=== PATIENT | female | born 1975 | race Caucasian/White ===

== ENCOUNTER 2017-06-29 03:46 | Emergency (ER) | payer MEDICARE, MEDICAID ==
[~2017-06-29] VITALS: Ht 165.1 cm; Wt 112.0 kg
[~2017-06-29 03:46] MED LIST: ACCU20TA PO; BACL20TA PO; DICL50 PO; DIGO0.25 PO; FENT50DI T-DERMAL; FURO1TAB93 PO; GABA300 PO; HYDR-3535 PO; IBUP-232 PO; KLOR20TA6 PO; LORA1TAB PO; MONT10TA2 PO; OMEP20TA OR; SERO100T PO; SUCR1TAB PO; SYNT200T PO; TOPR100T15 PO; WELL150T PO; ZOFR4TAB3 SL; ZOLP10TA3 PO; [UNRECOGNIZED DRUG - CODE] TD
[2017-06-29 03:54] VITALS: BP 137/57; PULSE 94; RESP 20; TEMP 100; O2SAT 98
[2017-06-29] MEDS ORDERED: VOLT100T PO (04:34)
[2017-06-29] MEDS ORDERED: POTA-163 PO (04:34)
[2017-06-29] MEDS ORDERED: NITR0.1D T-DERMAL (04:34)
[2017-06-29] MEDS ORDERED: OMEP40CA2 PO (04:34)
[2017-06-29] MEDS ORDERED: CLON1TAB PO (04:34)
[2017-06-29] MEDS ORDERED: SERO50TA PO (04:34)
[2017-06-29] MEDS ORDERED: NORV2.5T PO (04:34)
[2017-06-29] MEDS ORDERED: NEUR300C PO (04:34)
[2017-06-29] MEDS ORDERED: PRED50 PO (04:34)
[2017-06-29] MEDS ORDERED: WELLTAB39 PO (04:34)
[2017-06-29] MEDS ORDERED: TOPR100T PO (04:34)
[2017-06-29] MEDS ORDERED: DIGO0.259 PO (04:34)
[2017-06-29] MEDS ORDERED: FURO1TAB60 PO (04:34)
[2017-06-29] MEDS ORDERED: MONT10TA2 PO (04:34)
[2017-06-29] MEDS ORDERED: ROPI.25 PO (04:34)
--- NOTE | 2017-06-29 04:51 | RADRPT ---
EXAM DATE/TIME: 06/29/2017 04:36 [facility] COMPARISON: No previous studies available for comparison. INDICATIONS : Right lateral knee pain post fall. MEDICAL HISTORY : Cardiovascular disease. Hypertension. Gastroesophageal reflux disease.Asthma, Ovarian cancer SURGICAL HISTORY : Cholecystectomy. Hysterectomy.Heart valve replacement ENCOUNTER: Initial ACUITY: 1 day PAIN SCORE: 8/10 LOCATION: Right lateral knee FINDINGS: There is moderate osteoarthritis with small joint effusion. No acute fracture or subluxation. No bony destructive changes. CONCLUSION: 1. Moderate osteoarthritis with small joint effusion. No acute fracture. Adam Ospina MD on June 29, 2017 at 4:48 Board Certified Radiologist. This report was verified electronically.
--- NOTE | 2017-06-29 04:52 | RADRPT ---
EXAM DATE/TIME: 06/29/2017 04:37 [facility] COMPARISON: No previous studies available for comparison. INDICATIONS : Right foot, fifth digit pain post fall. MEDICAL HISTORY : Cardiovascular disease. Hypertension. Gastroesophageal reflux disease.Asthma, Ovarian cancer SURGICAL HISTORY : Cholecystectomy. Hysterectomy.Heart valve replacement ENCOUNTER: Initial ACUITY: 1 day PAIN SCORE: 10/10 LOCATION: Right foot FINDINGS: Three view examination of the right foot demonstrates no soft tissue swelling, dislocation, or fractu re. The tarsal bones appear intact. The interphalangeal and metatarsophalangeal joints are intact. The calcaneus is intact. Bony mineralization is normal. CONCLUSION: 1. No acute findings. Adam Ospina MD on June 29, 2017 at 4:49 Board Certified Radiologist. This report was verified electronically.
[2017-06-29] MEDS ORDERED: PERC5TAB12 PO (05:29)
--- NOTE | 2017-06-29 05:31 | PD ---
HPI Chief Complaint: Fall Time Seen by Provider: 05:18 Travel History International Travel<30 days: No Contact w/Intl Traveler<30days: No Traveled to known affect area: No History of Present Illness HPI The patient is a 42-year-old female that complains of right foot and knee injury when she tripped and fell about 2:00 this morning. She tripped against a bedpost. She noticed a bruise on her right fifth toe and states her knee gave out. She states she is disabled because of fibromyalgia and strokes. She does not work. PFSH Past Medical History Hx Anticoagulant Therapy: No Asthma: Yes Autoimmune Disease: Yes (LYME, RSD) Anxiety: Yes Depression: Yes Cancer: Yes (OVARIAN, THYROID) Cardiovascular Problems: Yes (HTN / HYPERCHOLESTEROLEMIA / DILATED CARDIOMYOPATHY WITH CHF) Chemotherapy: No Chest Pain: Yes Congestive Heart Failure: Yes Cerebrovascular Accident: Yes Diabetes: No Diminished Hearing: No Endocrine: Yes Gastrointestinal Disorders: Yes (CROHNS, IBS) GERD: Yes Genitourinary: No Hepatitis: No Hiatal Hernia: No Hypertension: Yes Immune Disorder: Yes (LUPUS, FIBROMYALGIA, LYME DISEASE) Musculoskeletal: Yes (ARTHRITIS,DISC DISEASE) Neurologic: Yes (LEFT SIDED WEAKNESS, CVA) Psychiatric: Yes (PTSD, DEPRESSION) Reproductive: Yes (ENDOMETRIOSSIS, HYSTERECTOMY AGE 21) Respiratory: Yes (COPD (CHRONIC BRONCHITIS/ASTHMA)) Integumentary: Yes Immunizations Current: Yes Radiation Therapy: Yes Seizures: Yes Thyroid Disease: Yes (GRAVES) Ulcer: Yes Tetanus Vaccination: < 5 Years Influenza Vaccination: Yes ?: Not LMP: PT STATES 2 WEEKS AGO Past Surgical History AICD: No Body Medical Devices: cardiac septal amplifier hardware left ankle and shoulder Cardiac Surgery: Yes (SEPTAL AMPLIFIER) Cholecystectomy: Yes Coronary Stent: Yes Endocrine Surgery: Yes Eye Surgery: Yes Gynecologic Surgery: Yes (OOPHORECTOMY) Hysterectomy: Yes Joint Replacement: No Oral Surgery: Yes (DENTAL IMPLANTS) Pacemaker: No Tonsillectomy: Yes Valve Replacement: Yes (SEPTAL VALVE REPLACEMENT) Other Surgery: Yes Social History Alcohol Use: Yes (REFUSES TO QUANTIFY) Tobacco Use: No (pt states she quit and now uses e-cig/vape) Substance Use: No (BENZO, METHADONE PAST) Allergies-Medications (Allergen,Severity, Reaction): Coded Allergies: Sulfa (Sulfonamide Antibiotics) (Unverified Allergy, Severe, THROAT SWELLS , 06/29/17) avocado (Unverified Allergy, Severe, 06/29/17) bee venom protein (honey bee) (Unverified Allergy, Severe, 06/29/17) anaphylaxid clopidogrel (Unverified Allergy, Severe, TAMPONADE, 06/29/17) diatrizoate meglumine (Unverified Allergy, Severe, Hives, 06/29/17) difficulty breathing diatrizoate sodium (Unverified Allergy, Severe, Hives, 06/29/17) gadobenic acid (Unverified Allergy, Severe, Hives, 06/29/17) difficulty breathing gadodiamide (Unverified Allergy, Severe, Hives, 06/29/17) difficulty breathing gadoteridol (Unverified Allergy, Severe, Hives, 06/29/17) difficulty breathing iodixanol (Unverified Allergy, Severe, Hives, 06/29/17) difficulty breathing iohexol (Unverified Allergy, Severe, Hives, 06/29/17) difficulty breathing lansoprazole (Unverified Allergy, Severe, Hives, 06/29/17) gastric bleeding watler (Unverified Allergy, Severe, hives, 06/29/17) meperidine (Unverified Allergy, Severe, Hives, 06/29/17) intensifies the pain mold (Unverified Allergy, Severe, 06/29/17) trouble breathing and hives penicillin G (Unverified Allergy, Severe, 06/29/17) anaphylaxis ranitidine (Unverified Allergy, Severe, Anaphylaxis, 06/29/17) red dye (Unverified Allergy, Severe, Hives, 06/29/17) cetirizine (Unverified Allergy, Intermediate, Hives, 06/29/17) Reported Meds & Prescriptions Reported Meds & Active Scripts Active Reported Omeprazole 40 Mg Cap 40 Mg PO DAILY Singulair (Montelukast Sodium) 10 Mg Tab 10 Mg PO HS Seroquel (Quetiapine Fumarate) 50 Mg Tab 75 Mg PO HS Wellbutrin Xl 24 HR (Bupropion HCl) 300 Mg Tab 450 Mg PO DAILY Nitro-Dur Patch 24 HR (Nitroglycerin) 0.1 Mg/Hr Patch 0.1 Mg T-DERMAL DAILY Voltaren-Xr (Diclofenac Sodium) 100 Mg Tab.er.24h 100 Mg PO BID Requip (Ropinirole HCl) 0.25 Mg Tab 0.25 Mg PO TID Potassium Chloride ER (Potassium Chloride) 20 Meq Tab 20 Meq PO BID Lasix (Furosemide) 40 Mg Tab 40 Mg PO DAILY Clonazepam 1 Mg Tab 1 Mg PO BID Neurontin (Gabapentin) 300 Mg Cap 300 Mg PO TID Digox (Digoxin) 0.25 Mg Tab 0.5 Mg PO DAILY Norvasc (Amlodipine Besylate) 2.5 Mg Tab 2.5 Mg PO DAILY Toprol XL (Metoprolol Succinate) 100 Mg Tab 100 Mg PO DAILY Prednisone 50 Mg Tab 100 Mg PO DAILY Review of Systems Except as stated in HPI: all other systems reviewed are Neg Physical Exam Narrative GENERAL: Well-nourished, alert and oriented, obese patient in slight apparent distress with her right foot and right knee discomfort. Her vital signs are normal. SKIN: Focused skin assessment warm/dry. HEAD: Normocephalic. EYES: No scleral icterus. No injection or drainage. NECK: Supple, trachea midline. No JVD or lymphadenopathy. CARDIOVASCULAR: Regular rate and rhythm without murmurs, gallops, or rubs. RESPIRATORY: Breath sounds equal bilaterally. No accessory muscle use. GASTROINTESTINAL: Abdomen soft, non-tender, nondistended. MUSCULOSKELETAL: No cyanosis, or edema. There is a large contusion about the right fifth toe but no linear rotatory deformity. There is slight contusion on the medial aspect of the foot. The knee shows no deformity, collaterals, drawer , Kathryn all intact ligaments. BACK: Nontender without obvious deformity. No CVA tenderness. Data Data Last Documented VS Vital Signs Date Time Temp Pulse Resp B/P Pulse Ox O2 Delivery O2 Flow Rate FiO2 06/29/17 03:54 100.0 94 20 137/57 98 Room Air Orders Foot, Complete ([id number]) (06/29/17 ) Knee, Complete (4vws) (06/29/17 ) Ice/Cold Pack (06/29/17 04:37) MDM Medical Decision Making Medical Screen Exam Complete: Yes Emergency Medical Condition: Yes Medical Record Reviewed: Yes Interpretation(s) X-rays of the right knee and right foot are negative for fracture. Plan: The patient is given a postop shoe, she states she has a walker at home and she is encouraged to use it. Differential Diagnosis Fractured toe, contusion:, Right knee strain, fracture knee, ligamentous tear knee Narrative Course The patient has contusion of the right fifth toe and the right knee strain. She should follow-up with her primary care physician if she has continued problems. For the next week she should try and avoid weightbearing on her right leg. She is to use the walker that she has at home. Diagnosis Primary Impression: Contusion of fifth toe of right foot Additional Impression: Strain of right knee Additional Instructions: As we discussed, use your walker at home. It is much more stable on crutches and, hopefully, the postop shoe will be comfortable enough. Follow-up with your primary care physician if you have continued pain. Med/Other Pt SpecificInfo: Prescription(s) given, No Change to Meds ( ) Scripts Oxycodone-Acetaminophen (Percocet)5-325 mg Tab1 Tab PO Q6H PRN (PAIN) #20 TAB Ref 0 Prov:Vinod Seymour MD 06/29/17 Vinod Seymour MD Jun 29, 2017 05:31
[2017-06-29] MEDS ORDERED: ZOFR4TAB3 SL (05:48)
[2017-06-29] MEDS ORDERED: ONDANSETRON HCL 4 MG/2 ML VIAL IM ONE (06:00)
== END 2017-06-29 05:37 | disposition home or self-care (01) ==
LOC: PHED 03:46
DX: S90.121A Contusion of right lesser toe(s) without damage to nail, initial encounter (principal); W01.0XXA Fall on same level from slipping, tripping and stumbling without subsequent striking against object, initial encounter
CPT/HCPCS: 73564; 73630; 99283; J2405

== ENCOUNTER 2017-09-25 02:25 | Observation (INO) | payer MEDICAID, MEDICARE ==
[~2017-09-25] VITALS: Ht 165.1 cm; Wt 113.2 kg
[~2017-09-25 02:25] MED LIST changes: -ACCU20TA PO; -BACL20TA PO; +CLON1TAB PO; -DICL50 PO; -DIGO0.25 PO; +DIGO0.259 PO; -FENT50DI T-DERMAL; +FURO1TAB60 PO; -FURO1TAB93 PO; -GABA300 PO; -HYDR-3535 PO; -IBUP-232 PO; -KLOR20TA6 PO; -LORA1TAB PO; +NEUR300C PO; +NITR0.1D T-DERMAL; +NORV2.5T PO; -OMEP20TA OR; +OMEP40CA2 PO; +PERC5TAB12 PO; +POTA-163 PO; +PRED50 PO; +ROPI.25 PO; -SERO100T PO; +SERO50TA PO; -SUCR1TAB PO; -SYNT200T PO; +TOPR100T PO; -TOPR100T15 PO; +VOLT100T PO; -WELL150T PO; +WELLTAB39 PO; -ZOLP10TA3 PO; -[UNRECOGNIZED DRUG - CODE] TD
[2017-09-25 02:30] VITALS: BP 140/65; PULSE 87; RESP 22; TEMP 98.6; O2SAT 98
[2017-09-25] MEDS ORDERED: HYDR-3516 PO (03:11)
[2017-09-25] MEDS ORDERED: DOXE25CA2 PO (03:12)
[2017-09-25 03:31] VITALS: BP 139/65; PULSE 88; RESP 20; O2SAT 98
[2017-09-25 03:38] LABS: AUTOMATED NEUTROPHIL # 3.7 TH/MM3 (1.8-7.7); BASOPHIL % 0.6 % (0.0-2.0); CHLORIDE 102 MEQ/L (98-107); EOSINOPHIL # 0.2 TH/MM3 (0-0.4); EOSINOPHIL % 3.2 % (0.0-4.0); HEMATOCRIT 32.5 % (35.0-46.0); HEMO FLAGS DIFF FINAL; LYMPH % 34.1 % (9.0-44.0); LYMPHOCYTE # 2.3 TH/MM3 (1.0-4.8); MEAN CELL VOLUME 84.3 FL (80.0-100.0); MEAN CORPUSCULAR HEMOGLOBIN 27.8 PG (27.0-34.0); MONO % 7.8 % (0.0-8.0); NEUT % 54.3 % (16.0-70.0); PLATELET COUNT 396 TH/MM3 (150-450); POTASSIUM 3.5 MEQ/L (3.5-5.1); RED BLOOD COUNT 3.86 MIL/MM3 (4.00-5.30); RED CELL DISTRIBUTION WIDTH 16.3 % (11.6-17.2); SODIUM (NA) 139 MEQ/L (136-145); WHITE BLOOD COUNT 6.7 TH/MM3 (4.0-11.0)
[2017-09-25 03:41] LABS: ANION GAP 9 MEQ/L (5-15); BICARBONATE 28.4 MEQ/L (21.0-32.0)
[2017-09-25 03:42] LABS: BLOOD UREA NITROGEN 9 MG/DL (7-18)
[2017-09-25 03:44] LABS: ALT (GPT) 43 U/L (10-53); AST (GOT) 31 U/L (15-37)
[2017-09-25 03:45] LABS: GLOMERULAR FILTRATION RATE 94 ML/MIN (>89)
[2017-09-25 03:46] LABS: TOTAL BILIRUBIN ADULT 0.2 MG/DL (0.2-1.0)
[2017-09-25 03:47] LABS: ALKALINE PHOSPHATASE 58 U/L (45-117)
[2017-09-25 04:23] LABS: DIGOXIN 0.5 NG/ML (0.8-2.0)
--- NOTE | 2017-09-25 04:23 | RADRPT ---
EXAM DATE/TIME: 09/25/2017 04:08 [facility] COMPARISON: No previous studies available for comparison. INDICATIONS : Chest pain. MEDICAL HISTORY : Cardiovascular disease. Hypertension. Gastroesophageal reflux disease.Asthma Ovarian cancer. SURGICAL HISTORY : Coronary artery stent. Cholecystectomy. Hysterectomy.Heart valve replacement. ENCOUNTER: Initial ACUITY: 1 day PAIN SCORE: 6/10 LOCATION: Bilateral chest FINDINGS: PA and lateral views of the chest demonstrate the lungs to be symmetrically aerated without evidence of mass, infiltrate or effusion. The cardiomediastinal contours are unremarkable. Osseous structure s are intact. CONCLUSION: Normal examination. Radioopaque device overlies the posterior heart. Nipple rings Jefferson Reddy MD on September 25, 2017 at 4:20 Board Certified Radiologist. This report was verified electronically.
[2017-09-25 04:31] VITALS: BP 113/45; PULSE 80; RESP 20; O2SAT 98
--- NOTE | 2017-09-25 04:43 | PD ---
HPI Chief Complaint: Chest Pain Time Seen by Provider: 03:13 Travel History International Travel<30 days: No Contact w/Intl Traveler<30days: No Traveled to known affect area: No History of Present Illness HPI pt has long cardiac history on digoxin and lasix and lopressor for yeas , 24 hrs ago felt strange headache and CP then slept 24 hrs and awoke feeling confused and CP left sided , now in ED slightly confused and CP continues. NO radiation , She did not take anything ( no nitro) or asa for pain. pt has not seen another MD for this complaint. Sx over 24 hrs and ongoing in ED PFSH Past Medical History Hx Anticoagulant Therapy: No Asthma: Yes Autoimmune Disease: Yes (LYME, RSD) Anxiety: Yes Depression: Yes Cancer: Yes (OVARIAN, THYROID) Cardiac Catheterization: Yes Cardiomyopathy: Yes Cardiovascular Problems: Yes Chemotherapy: No Chest Pain: Yes Congestive Heart Failure: Yes COPD: Yes Cerebrovascular Accident: Yes Diabetes: No Diminished Hearing: No Endocrine: Yes Gastrointestinal Disorders: Yes (CROHNS, IBS) GERD: Yes Genitourinary: No Hepatitis: No Hiatal Hernia: No Hypertension: Yes Immune Disorder: Yes (LUPUS, FIBROMYALGIA, LYME DISEASE) Musculoskeletal: Yes (ARTHRITIS,DISC DISEASE) Neurologic: Yes (LEFT SIDED WEAKNESS, CVA) Psychiatric: Yes (PTSD, DEPRESSION) Reproductive: Yes (ENDOMETRIOSSIS, HYSTERECTOMY AGE 21) Respiratory: Yes Integumentary: Yes Immunizations Current: Yes Radiation Therapy: Yes Seizures: Yes Thyroid Disease: Yes (GRAVES) Ulcer: Yes Tetanus Vaccination: < 5 Years Influenza Vaccination: No ?: Unknown Past Surgical History AICD: No Body Medical Devices: cardiac septal amplifier hardware left ankle and shoulder Cardiac Surgery: Yes (SEPTAL AMPLIFIER) Cholecystectomy: Yes Coronary Stent: Yes Endocrine Surgery: Yes Eye Surgery: Yes Gynecologic Surgery: Yes (RIGHT OOPHORECTOMY) Hysterectomy: Yes Joint Replacement: No Oral Surgery: Yes (DENTAL IMPLANTS) Pacemaker: No Tonsillectomy: Yes Valve Replacement: Yes (SEPTAL VALVE REPLACEMENT) Other Surgery: Yes Social History Alcohol Use: Yes (Socially) Tobacco Use: No (Vapes) Substance Use: No (BENZO, METHADONE PAST) Allergies-Medications (Allergen,Severity, Reaction): Coded Allergies: Sulfa (Sulfonamide Antibiotics) (Unverified Allergy, Severe, THROAT SWELLS , 09/25/17) avocado (Unverified Allergy, Severe, 09/25/17) bee venom protein (honey bee) (Unverified Allergy, Severe, 09/25/17) anaphylaxid clopidogrel (Unverified Allergy, Severe, TAMPONADE, 09/25/17) diatrizoate meglumine (Unverified Allergy, Severe, Hives, 09/25/17) difficulty breathing diatrizoate sodium (Unverified Allergy, Severe, Hives, 09/25/17) gadobenic acid (Unverified Allergy, Severe, Hives, 09/25/17) difficulty breathing gadodiamide (Unverified Allergy, Severe, Hives, 09/25/17) difficulty breathing gadoteridol (Unverified Allergy, Severe, Hives, 09/25/17) difficulty breathing iodixanol (Unverified Allergy, Severe, Hives, 09/25/17) difficulty breathing iohexol (Unverified Allergy, Severe, Hives, 09/25/17) difficulty breathing lansoprazole (Unverified Allergy, Severe, Hives, 09/25/17) gastric bleeding walter (Unverified Allergy, Severe, hives, 09/25/17) meperidine (Unverified Allergy, Severe, Hives, 09/25/17) intensifies the pain mold (Unverified Allergy, Severe, 09/25/17) trouble breathing and hives penicillin G (Unverified Allergy, Severe, 09/25/17) anaphylaxis ranitidine (Unverified Allergy, Severe, Anaphylaxis, 09/25/17) red dye (Unverified Allergy, Severe, Hives, 09/25/17) cetirizine (Unverified Allergy, Intermediate, Hives, 09/25/17) Reported Meds & Prescriptions Reported Meds & Active Scripts Active Zofran Odt (Ondansetron Odt) 4 Mg Tab 4 Mg SL Q6HR PRN Reported Doxepin (Doxepin HCl) 25 Mg Cap 10 Mg PO HS Hydrocodone-Acetamin 5-325 mg (Hydrocodone/Acetaminophen) 5 Mg-325 Mg Tablet 1 Tab PO Q8HR PRN Omeprazole 40 Mg Cap 40 Mg PO DAILY Singulair (Montelukast Sodium) 10 Mg Tab 10 Mg PO HS Seroquel (Quetiapine Fumarate) 50 Mg Tab 75 Mg PO HS Wellbutrin Xl 24 HR (Bupropion HCl) 300 Mg Tab 450 Mg PO DAILY Voltaren-Xr (Diclofenac Sodium) 100 Mg Tab.er.24h 100 Mg PO BID Requip (Ropinirole HCl) 0.25 Mg Tab 0.25 Mg PO TID Potassium Chloride ER (Potassium Chloride) 20 Meq Tab 20 Meq PO BID Lasix (Furosemide) 40 Mg Tab 40 Mg PO DAILY Clonazepam 1 Mg Tab 1 Mg PO BID Neurontin (Gabapentin) 300 Mg Cap 300 Mg PO TID Digox (Digoxin) 0.25 Mg Tab 0.125 Mg PO DAILY Norvasc (Amlodipine Besylate) 2.5 Mg Tab 2.5 Mg PO DAILY Toprol XL (Metoprolol Succinate) 100 Mg Tab 100 Mg PO DAILY Prednisone 50 Mg Tab 100 Mg PO DAILY Review of Systems Except as stated in HPI: all other systems reviewed are Neg Cardiovascular: Positive: Chest Pain or Discomfort, Diaphoresis Musculoskeletal: Positive: Weakness Physical Exam Narrative GENERAL: pt wake alert slightly diaphoretic . relating her history in detail no confusion SKIN: Warm and dry. HEAD: Atraumatic. Normocephalic. EYES: Pupils equal and round. No scleral icterus. No injection or drainage. ENT: No nasal bleeding or discharge. Mucous membranes pink and moist. NECK: Trachea midline. No JVD. CARDIOVASCULAR: Regular rate and rhythm. RESPIRATORY: No accessory muscle use. Clear to auscultation. Breath sounds equal bilaterally. GASTROINTESTINAL: Abdomen soft, non-tender, nondistended. Hepatic and splenic margins not palpable. MUSCULOSKELETAL: Extremities without clubbing, cyanosis, or 1 + pitting edema ankles bilateral . No obvious deformities. NEUROLOGICAL: Awake and alert. No obvious cranial nerve deficits. Motor grossly within normal limits. Five out of 5 muscle strength in the arms and legs. Normal speech. PSYCHIATRIC: Appropriate mood and affect; insight and judgment normal. Data Data Last Documented VS Vital Signs Date Time Temp Pulse Resp B/P (MAP) Pulse Ox O2 Delivery O2 Flow Rate FiO2 09/25/17 05:30 82 20 136/63 (87) 98 09/25/17 02:30 98.6 Orders Orders Complete Blood Count With Diff (09/25/17 03:21) Comprehensive Metabolic Panel (09/25/17 03:21) Troponin I (09/25/17 03:21) Digoxin (09/25/17 03:21) Electrocardiogram (09/25/17 ) Chest, Pa & Lat (09/25/17 ) Place In Observation (09/25/17 05:27) Activity Bed Rest With Brp (09/25/17 05:27) Vital Signs (Adult) Q4H (09/25/17 05:27) Cardiac Rhythm .As Directed (09/25/17 05:27) Notify Dr: Other .PRN (09/25/17 05:) Notify Dr. Parameters (09/25/17 05:) Resp Oxygen Nasal Cannula (09/25/17 ) Ckmb (Isoenzyme) Profile (09/25/17 05:27) Troponin I (09/25/17 05:) Electrocardiogram (09/25/17 05:) ^ Obtain (09/25/17 05:) Sodium Chloride 0.9% Flush (Ns Flush) (09/25/17 05:30) Sodium Chloride 0.9% Flush (Ns Flush) (09/25/17 09:00) Ondansetron Inj (Zofran Inj) (09/25/17 05:30) Freelance Photographer / Telemetry [email or web address].[email or web address] (09/25/17 05:27) Admit Order (Ed Use Only) (09/25/17 06:00) CKMB (09/25/17 06:30) CKMB% (09/25/17 06:30) Labs Laboratory Tests Test 09/25/17 02:40 White Blood Count 6.7 TH/MM3 Red Blood Count 3.86 MIL/MM3 Hemoglobin 10.7 GM/DL Hematocrit 32.5 % Mean Corpuscular Volume 84.3 FL Mean Corpuscular Hemoglobin 27.8 PG Mean Corpuscular Hemoglobin Concent 33.0 % Red Cell Distribution Width 16.3 % Platelet Count 396 TH/MM3 Mean Platelet Volume 9.1 FL Neutrophils (%) (Auto) 54.3 % Lymphocytes (%) (Auto) 34.1 % Monocytes (%) (Auto) 7.8 % Eosinophils (%) (Auto) 3.2 % Basophils (%) (Auto) 0.6 % Neutrophils # (Auto) 3.7 TH/MM3 Lymphocytes # (Auto) 2.3 TH/MM3 Monocytes # (Auto) 0.5 TH/MM3 Eosinophils # (Auto) 0.2 TH/MM3 Basophils # (Auto) 0.0 TH/MM3 CBC Comment DIFF FINAL Differential Comment Blood Urea Nitrogen 9 MG/DL Creatinine 0.69 MG/DL Random Glucose 109 MG/DL Total Protein 6.8 GM/DL Albumin 2.8 GM/DL Calcium Level 8.1 MG/DL Alkaline Phosphatase 58 U/L Aspartate Amino Transf (AST/SGOT) 31 U/L Alanine Aminotransferase (ALT/SGPT) 43 U/L Total Bilirubin 0.2 MG/DL Sodium Level 139 MEQ/L Potassium Level 3.5 MEQ/L Chloride Level 102 MEQ/L Carbon Dioxide Level 28.4 MEQ/L Anion Gap 9 MEQ/L Estimat Glomerular Filtration Rate 94 ML/MIN Troponin I LESS THAN 0.02 NG/ML Digoxin Level 0.5 NG/ML MDM Medical Decision Making Medical Screen Exam Complete: Yes Emergency Medical Condition: Yes Differential Diagnosis Chest pain ischemic versus gastritis versus GERD versus congestive heart failure versus fluid overload Narrative Course EKG is normal sinus rhythm troponin is negative chest x-ray does not show any signs of congestion. Physical exam no auscultated fluid in the lungs . Mild pitting edema in the ankles and heels. will Admit for repeat troponins and EKG . Patient is stable. Patient says she might want to sign out AGAINST MEDICAL ADVICE. Due to the fact that she has a meeting with her material flow engineer tomorrow for arbitration. Diagnosis Primary Impression: Chest pain Admitting Information Admitting Physician Requests: Fritz Stallings MD Sep 25, 2017 04:43
[2017-09-25 05:30] VITALS: BP 136/63; PULSE 82; RESP 20; O2SAT 98
[2017-09-25] MEDS ORDERED: SODIUM CHLORIDE 0.9% FLUSH 10 ML FLUSH IV FLUSH PRN (05:30)
[2017-09-25] MEDS ORDERED: ONDANSETRON HCL 4 MG/2 ML VIAL IV PUSH PRN (05:30)
[2017-09-25] MEDS ORDERED: METOPROLOL TARTRATE 25 MG TAB PO ONE (06:30)
[2017-09-25 07:12] VITALS: BP 128/56; PULSE 82; RESP 18; O2SAT 95
[2017-09-25 07:17] LABS: CREATINE KINASE 113 U/L (26-192)
[2017-09-25 07:29] LABS: CKMB 0.7 NG/ML (0.5-3.6)
[2017-09-25] MEDS ORDERED: SODIUM CHLORIDE 0.9% FLUSH 10 ML FLUSH IV FLUSH SCH (09:00)
--- NOTE | 2017-09-25 18:25 | EKG ---
Date Performed: 09/25/2017 Time Performed: 06:32:50 PTAGE: 42 years EKG: Sinus rhythm NORMAL ECG PREVIOUS TRACING : 09/25/2017 02.37 Compared to prior tracing no significant change DOCTOR: Kendal Roldan Interpretating Date/Time 09/25/2017 18:23:55
--- NOTE | 2017-09-25 18:35 | EKG ---
Date Performed: 09/25/2017 Time Performed: 02:37:33 PTAGE: 42 years EKG: Sinus rhythm NORMAL ECG PREVIOUS TRACING : 12/22/2015 19.19 Compared to prior tracing no significant change DOCTOR: Kendal Roldan Interpretating Date/Time 09/25/2017 18:34:00
== END 2017-09-25 07:53 | disposition left against medical advice (07) ==
LOC: PHED 02:25 → PHEDA 06:04
PROVIDERS: ADMIT Family Medicine; ATTEND Family Medicine
DX: R07.9 Chest pain, unspecified (principal); R51 Headache; R60.0 Localized edema; R53.1 Weakness; I11.0 Hypertensive heart disease with heart failure; I50.9 Heart failure, unspecified; J44.9 Chronic obstructive pulmonary disease, unspecified; J45.909 Unspecified asthma, uncomplicated; E05.00 Thyrotoxicosis with diffuse goiter without thyrotoxic crisis or storm; K50.90 Crohn's disease, unspecified, without complications; K58.9 Irritable bowel syndrome, unspecified; K21.9 Gastro-esophageal reflux disease without esophagitis; M79.7 Fibromyalgia; F41.9 Anxiety disorder, unspecified; F32.9 Major depressive disorder, single episode, unspecified; Z79.899 Other long term (current) drug therapy; Z86.73 Personal history of transient ischemic attack (TIA), and cerebral infarction without residual deficits; F43.10 Post-traumatic stress disorder, unspecified; Z95.2 Presence of prosthetic heart valve; Z95.5 Presence of coronary angioplasty implant and graft; Z85.43 Personal history of malignant neoplasm of ovary
CPT/HCPCS: 71020; 80053; 80162; 82550; 82552; 84484; 85025; 93005; 99285; G0378

== ENCOUNTER 2018-04-16 18:33 | Emergency (ER) | payer MEDICARE ==
[~2018-04-16] VITALS: Ht 165.1 cm; Wt 113.9 kg
[~2018-04-16 18:33] MED LIST changes: +DOXE25CA2 PO; +HYDR-3516 PO; -NITR0.1D T-DERMAL; -PERC5TAB12 PO
[2018-04-16 18:37] VITALS: BP 115/74; PULSE 78; RESP 20; TEMP 98.6; O2SAT 94
[2018-04-16 19:00] VITALS: BP 122/66; PULSE 71; RESP 18; O2SAT 95
[2018-04-16] MEDS ORDERED: MORPHINE SULFATE 4 MG/ML INJ IV PUSH ONE (19:15)
[2018-04-16] MEDS ORDERED: ONDANSETRON ODT 4 MG TAB PO ONE ×2 (19:15→22:00)
[2018-04-16] MEDS ORDERED: POTASSIUM CHLORIDE 20 MEQ CONTROLLED RELEASE TAB PO ONE (19:15)
--- NOTE | 2018-04-16 19:19 | PD ---
HPI Chief Complaint: chest pain, abdominal pain Time Seen by Provider: 18:55 Travel History International Travel<30 days: No Contact w/Intl Traveler<30days: No Traveled to known affect area: No History of Present Illness HPI 42yo F with PMH of cardiomyopathy, copd, RDS follows with pain management on fentanyl patch, graves disease presents to the ED with multiple complaints today. She said she was suppose to see her synchronous motor assembler Dr. Brito but they could not fit her in so she went to get lab drawn instead. She said the doctor tried to call her but could not reach her and fire came to get her instead because her potassium was low. Pt's potassium was 2.9. Pt said she also has chest pain, generalized weakness, sob, nausea, vomiting, abdominal pain. Chest pain is midsternal, sharp, intermittent lasting minutes at a time. Moderate severity. No exacerbating or alleviating factors. Pt said her abdominal pain is right lower abdomen but during abdominal exam, pain is generalized. PFSH Past Medical History Hx Anticoagulant Therapy: No Asthma: Yes Autoimmune Disease: Yes (LYME, RSD) Anxiety: Yes Depression: Yes Cancer: Yes (OVARIAN, THYROID) Cardiac Catheterization: Yes Cardiomyopathy: Yes Cardiovascular Problems: Yes Chemotherapy: No Chest Pain: Yes Congestive Heart Failure: Yes COPD: Yes Cerebrovascular Accident: Yes Diabetes: No Diminished Hearing: No Endocrine: Yes Gastrointestinal Disorders: Yes (CROHNS, IBS) GERD: Yes Genitourinary: No Hepatitis: No Hiatal Hernia: No Hypertension: Yes Immune Disorder: Yes (LUPUS, FIBROMYALGIA, LYME DISEASE) Musculoskeletal: Yes (ARTHRITIS,DISC DISEASE) Neurologic: Yes (LEFT SIDED WEAKNESS, CVA) Psychiatric: Yes (PTSD, DEPRESSION) Reproductive: Yes (ENDOMETRIOSSIS, HYSTERECTOMY AGE 21) Respiratory: Yes Integumentary: Yes Immunizations Current: Yes Radiation Therapy: Yes Seizures: Yes Thyroid Disease: Yes (GRAVES) Ulcer: Yes ?: Not LMP: TWO WEEKS AGO Past Surgical History AICD: No Body Medical Devices: cardiac septal amplifier hardware left ankle and shoulder Cardiac Surgery: Yes (SEPTAL AMPLIFIER) Cholecystectomy: Yes Coronary Stent: Yes Endocrine Surgery: Yes Eye Surgery: Yes Gynecologic Surgery: Yes (RIGHT OOPHORECTOMY) Hysterectomy: Yes Joint Replacement: No Oral Surgery: Yes (DENTAL IMPLANTS) Pacemaker: No Tonsillectomy: Yes Valve Replacement: Yes (SEPTAL VALVE REPLACEMENT) Other Surgery: Yes Social History Alcohol Use: Yes (Socially) Tobacco Use: No (Vapes) Substance Use: No (BENZO, METHADONE PAST) Allergies-Medications (Allergen,Severity, Reaction): Coded Allergies: Sulfa (Sulfonamide Antibiotics) (Unverified Allergy, Severe, THROAT SWELLS , 09/25/17) avocado (Unverified Allergy, Severe, 09/25/17) bee venom protein (honey bee) (Unverified Allergy, Severe, 09/25/17) anaphylaxid clopidogrel (Unverified Allergy, Severe, TAMPONADE, 09/25/17) diatrizoate meglumine (Unverified Allergy, Severe, Hives, 09/25/17) difficulty breathing diatrizoate sodium (Unverified Allergy, Severe, Hives, 09/25/17) gadobenic acid (Unverified Allergy, Severe, Hives, 09/25/17) difficulty breathing gadodiamide (Unverified Allergy, Severe, Hives, 09/25/17) difficulty breathing gadoteridol (Unverified Allergy, Severe, Hives, 09/25/17) difficulty breathing iodixanol (Unverified Allergy, Severe, Hives, 09/25/17) difficulty breathing iohexol (Unverified Allergy, Severe, Hives, 09/25/17) difficulty breathing lansoprazole (Unverified Allergy, Severe, Hives, 09/25/17) gastric bleeding walter (Unverified Allergy, Severe, hives, 09/25/17) meperidine (Unverified Allergy, Severe, Hives, 09/25/17) intensifies the pain mold (Unverified Allergy, Severe, 09/25/17) trouble breathing and hives penicillin G (Unverified Allergy, Severe, 09/25/17) anaphylaxis ranitidine (Unverified Allergy, Severe, Anaphylaxis, 09/25/17) red dye (Unverified Allergy, Severe, Hives, 09/25/17) cetirizine (Unverified Allergy, Intermediate, Hives, 09/25/17) Reported Meds & Prescriptions Reported Meds & Active Scripts Active Reported Epipen 2-Lester Inj (Epinephrine) 0.3 Mg/0.3 Ml Pfpen 0.3 Mg IM ONCE PRN Duoneb (Ipratropium-Albuterol Neb) 0.5-2.5 Mg/3 Ml Neb 1 Nebule INH Q4HR NEB PRN Ventolin Hfa 18 GM Inh (Albuterol Sulfate) 90 Mcg/Act Aer 2 Puff INH BID Proair Hfa 8.5 GM Inh (Albuterol Sulfate) 90 Mcg/Act Aer 2 Puff INH Q4-6H PRN 108 mcg/actuation [oxygen] 2 Liter RADHA.CANULA PRN PRN Phenergan (Promethazine HCl) 25 Mg Tablet 25 Mg PO Q6H PRN Spironolactone 25 Mg Tab 25 Mg PO DAILY Metolazone 5 Mg Tab 5 Mg PO DAILY Diclofenac Sodium ER 24 HR (Diclofenac Sodium) 100 Mg Quincy 75 Mg PO BID K-Tab (Potassium Chloride) 20 Meq Tab 40 Meq PO DAILY Amlodipine (Amlodipine Besylate) 5 Mg Tab 5 Mg PO DAILY Doxepin (Doxepin HCl) 25 Mg Cap 10 Mg PO HS Hydrocodone-Acetamin 5-325 mg (Hydrocodone/Acetaminophen) 5 Mg-325 Mg Tablet 1 Tab PO BID PRN Omeprazole 40 Mg Cap 40 Mg PO DAILY Singulair (Montelukast Sodium) 10 Mg Tab 10 Mg PO HS Seroquel (Quetiapine Fumarate) 50 Mg Tab 75 Mg PO HS Wellbutrin Xl 24 HR (Bupropion HCl) 300 Mg Tab 450 Mg PO HS Requip (Ropinirole HCl) 0.25 Mg Tab 0.25 Mg PO TID Lasix (Furosemide) 40 Mg Tab 40 Mg PO DAILY Clonazepam 1 Mg Tab 1 Mg PO BID Neurontin (Gabapentin) 300 Mg Cap 300 Mg PO TID Digox (Digoxin) 0.25 Mg Tab 0.125 Mg PO HS Toprol XL (Metoprolol Succinate) 100 Mg Tab 100 Mg PO DAILY Prednisone 50 Mg Tab 100 Mg PO DAILY PRN Review of Systems Except as stated in HPI: all other systems reviewed are Neg Physical Exam Narrative GENERAL: 42yo F in mild distress. SKIN: Focused skin assessment warm/dry. HEAD: Atraumatic. Normocephalic. EYES: Pupils equal and round. No scleral icterus. No injection or drainage. ENT: No nasal bleeding or discharge. Mucous membranes pink and moist. NECK: Trachea midline. No JVD. CARDIOVASCULAR: Regular rate and rhythm. No murmur appreciated. RESPIRATORY: No accessory muscle use. +Decreased breath sounds bilaterally. GASTROINTESTINAL: Abdomen soft, mildly ttp in RLQ, LLQ, epigastric. No rebound tenderness or guarding. MUSCULOSKELETAL: No obvious deformities. No clubbing. No cyanosis. +Bilateral lower extremity edema. NEUROLOGICAL: Awake and alert. No obvious cranial nerve deficits. Motor grossly within normal limits. Normal speech. PSYCHIATRIC: Appropriate mood and affect; insight and judgment normal. Data Data Last Documented VS Vital Signs Date Time Temp Pulse Resp B/P (MAP) Pulse Ox O2 Delivery O2 Flow Rate FiO2 04/17/18 00:09 68 20 114/65 (81) 95 04/16/18 23:00 Nasal Cannula 04/16/18 21:00 2.00 04/16/18 18:37 98.6 Orders Orders Act Partial Throm Time (Ptt) (04/16/18 19:06) Prothrombin Time / Inr (Pt) (04/16/18 19:06) Magnesium (Mg) (04/16/18 19:06) Troponin I (04/16/18 19:06) Urinalysis - C+S If Indicated (04/16/18 19:06) Electrocardiogram (04/16/18 19:06) Chest, Single Ap (04/16/18 19:06) Ed Urine Pregnancytest Poc (04/16/18 19:06) Potassium Chloride (Kcl) (04/16/18 19:15) Ondansetron Odt (Zofran Odt) (04/16/18 19:15) Morphine Inj (Morphine Inj) (04/16/18 19:15) Ct Abd/Pel W/O Iv Contrast (04/16/18 ) Thyroid Stimulating Hormone (04/16/18 19:12) B-Type Natriuretic Peptide (04/16/18 19:19) Lipase (04/16/18 19:40) Potassium Chlor 10 Meq Premix (Kcl 10 Me (04/16/18 20:30) Free T3 (04/16/18 20:23) Ondansetron Odt (Zofran Odt) (04/16/18 22:00) Ketorolac Inj (Toradol Inj) (04/16/18 23:00) Electrocardiogram (04/16/18 ) Ed Discharge Order (04/16/18 23:50) Labs Laboratory Tests Test 04/16/18 19:00 04/16/18 19:44 04/16/18 20:15 04/16/18 20:35 Prothrombin Time 10.9 SEC Prothromb Time International Ratio 1.1 RATIO Activated Partial Thromboplast Time 28.5 SEC Magnesium Level 1.5 MG/DL Troponin I LESS THAN 0.02 NG/ML B-Type Natriuretic Peptide LESS THAN 2 PG/ML Thyroid Stimulating Hormone 3rd Gen 79.700 uIU/ML Lipase 41 U/L Urine Color YELLOW Urine Turbidity CLEAR Urine pH 6.5 Urine Specific [place] LESS/EQUAL 1.005 Urine Protein NEG mg/dL Urine Glucose (UA) NEG mg/dL Urine Ketones NEG mg/dL Urine Occult Blood NEG Urine Nitrite NEG Urine Bilirubin NEG Urine Urobilinogen 0.2 MG/DL Urine Leukocyte Esterase NEG Urine RBC 0-3 /hpf Urine WBC 3-5 /hpf Urine Squamous Epithelial Cells 0-5 /hpf Urine Bacteria NONE /hpf Microscopic Urinalysis Comment CULT NOT INDICATED MDM Medical Decision Making Medical Screen Exam Complete: Yes Emergency Medical Condition: Yes Interpretation(s) EKG: NSR 70bpm. Normal axis. TWI diffusely. No ST elevation. EKG #2 unchanged from first EKG. Differential Diagnosis CHF exacerbation vs. ACS vs. pneumonia vs. gastroenteritis vs. viral syndrome vs. appendicitis Narrative Course 42yo F with multiple complaints. She does have hypokalemia as per the blood work drawn this afternoon. Pt given 60mEq KCl PO but is insistent that she also need IV potassium so given 10mEq KCl IV as well. Did not repeat CBC, BMP since those were just drawn this afternoon. Labs from outpatient reviewed, WBC 11.7. H/H 11.2/35.5 which is at baseline. K was 2.9. Chloride is low at 86. Creatinine 1.17 which is slightly more elevated than baseline. TSH is elevated at 79.7, will add free T3. Lipase low. Troponin negative. Magnesium normal. CXR negative. CT a/p showed no acute abnormality. Hepatic steatosis. Prior cholecystectomy. Normal appendix. Pt given toradol and zofran. States pain has improved. Pt is no longer nauseous and tolerating PO. Denies any chest pain. Since there is nonspecific T wave inversions and pt has cardiomyopathy, I offered serial EKG and cardiac enzyme in chest pain center as well as wait for the free T3 result since TSH is elevated. However, pt said she has appointment with her synchronous motor assembler Dr. Brito tomorrow and prefers to see her tomorrow. Said she lives down the [address] and will come back if any symptoms return. Free T3 is still pending but pt does not want to wait for the result. She is well appearing and advised her to follow up with her primary care physician regarding her thyroid function and if she needs any medication adjustments. Pt has normal mental status and her father is with her. Diagnosis Primary Impression: Chest pain Qualified Codes: R07.9 - Chest pain, unspecified Additional Impression: Elevated TSH Patient Instructions: General Instructions Departure Forms: Tests/Procedures Additional Instructions: Please follow up with your synchronous motor assembler tomorrow. Return to the ED if symptoms worsen. Med/Other Pt SpecificInfo: No Change to Meds Disposition: 01 DISCHARGE HOME Condition: Stable Piper Thorpe DO Apr 16, 2018 19:19
[2018-04-16] MEDS ORDERED: AMLO5TAB2 PO (19:37)
[2018-04-16] MEDS ORDERED: oxygen NAS.CANULA (19:37)
[2018-04-16] MEDS ORDERED: SPIR25TA PO (19:37)
[2018-04-16] MEDS ORDERED: METO5TAB3 PO (19:37)
[2018-04-16] MEDS ORDERED: DICL100T3 PO (19:37)
[2018-04-16] MEDS ORDERED: POTA1TAB4 PO (19:37)
[2018-04-16] MEDS ORDERED: PROM25TA10 PO (19:37)
--- NOTE | 2018-04-16 19:37 | RADRPT ---
EXAM DATE: 04/16/2018 7:32 PM EDT AGE/SEX: 42 years / Female INDICATIONS: Chest pain, shortness of breath for 24 hours CLINICAL DATA: This is the patient's initial encounter. Patient reports that signs and symptoms have been present for 1 day and indicates a pain score of 8/10. MEDICAL/SURGICAL HISTORY: . Cardiovascular disease. Hypertension. Gastroesophageal reflux disea se.Asthma Ovarian cancer. . Coronary artery stent. Cholecystectomy. Hysterectomy.Heart valve replac ement. COMPARISON: Chest x-ray 09/29/2015. FINDINGS: A single AP view of the chest demonstrates the lungs to be symmetrically aerated without evidence of mass, infiltrate or effusion. The cardiomediastinal contours are unremarkable. Osseous structures a re intact. CONCLUSION: Negative examination. Electronically signed by: Carl Douglas MD 04/16/2018 7:36 PM EDT
[2018-04-16 19:41] LABS: MAGNESIUM 1.5 MG/DL (1.5-2.5)
[2018-04-16 19:43] LABS: INTERNATIONAL NORMALIZED RATIO 1.1 RATIO; PROTHROMBIN TIME - PATIENT 10.9 SEC (9.8-11.6)
[2018-04-16] MEDS ORDERED: ALBUAER3 INH (19:45)
[2018-04-16] MEDS ORDERED: IPRASOL INH (19:45)
[2018-04-16] MEDS ORDERED: EPIP0.3I IM (19:45)
[2018-04-16] MEDS ORDERED: VENTAER INH (19:45)
[2018-04-16 19:49] LABS: TROPONIN I LESS THAN 0.02 NG/ML (0.02-0.05)
[2018-04-16 20:18] LABS: BILIRUBIN, URINE NEG (NEG); BLOOD, URINE NEG (NEG); GLUCOSE,URINE NEG (NEG); KETONE, URINE NEG (NEG); NITRITE,URINE NEG (NEG); PH, URINE 6.5 (5.0-8.5); URINE COLOR YELLOW (YELLW/STRAW); URINE LEUKOCYTE ESTERASE NEG (NEG)
[2018-04-16 20:27] LABS: RBC, URINE 0-3 /hpf (0-3); SQUAMOUS EPITHELIAL CELL URINE 0-5 /hpf (0-5)
[2018-04-16] MEDS ORDERED: POTASSIUM CHLOR 10 MEQ PREMIX 100 ML IV ONE (20:30)
[2018-04-16 21:00] VITALS: BP 120/69; PULSE 74; RESP 18; O2SAT 97
--- NOTE | 2018-04-16 21:16 | RADRPT ---
EXAM DATE: 04/16/2018 9:03 PM EDT AGE/SEX: 42 years / Female INDICATIONS: Weakness. Right lower abdomen pain. CLINICAL DATA: This is the patient's initial encounter. Patient reports that signs and symptoms have been present for 2 days and indicates a pain score of 9/10. MEDICAL/SURGICAL HISTORY: Gastroesophageal reflux disease. Cerebrovascular disease. Cardiovas cular disease. Carcinoma, ovarian. Lupus. Cholecystectomy. Hysterectomy. Oophorectomy, right. Card iac surgery. RADIATION DOSE: 24.12 CTDI (mGy) COMPARISON: CT abdomen and pelvis 04/15/2016. TECHNIQUE: Multiple contiguous axial images were obtained through the abdomen. Images were obtained using multiple row detector helical technique. Using dose reduction techniques, radiation dose was ke pt as low as reasonably achievable to obtain optimal diagnostic quality images. FINDINGS: Lower Lungs: Mild linear atelectasis within both lung bases.. Liver: The liver is diffusely low in attenuation which is a new finding from the prior study. No mass or ductal dilatation. Gallbladder is surgically absent.. There is no dilation of the biliary tree. Spleen: Homogeneous density without enlargement. Pancreas: Unremarkable without mass or calcification. Kidneys: Normal in size and shape. No evidence of mass or hydronephrosis. Adrenal Glands: Unremarkable. Aorta: The aorta and proximal iliac vessels are grossly unremarkable without aneurysmal dilation. Bowel/Mesentery: Appendix is normal by CT criteria. The bowel loops are grossly unremarkable. The ce cum and sigmoid colon have a normal configuration. Abdominal Wall: Intact. Retroperitoneum: No evidence of adenopathy in the retrocrural, para-aortic, or deep pelvic regions. Bladder: Contours are smooth. Reproductive Organs: No abnormal masses or calcifications seen. Inguinal: The inguinal region is unremarkable without evidence of adenopathy. Bony Structures: Unremarkable. CONCLUSION: 1. No acute abnormality. 2. Hepatic steatosis. 3. Prior cholecystectomy. Electronically signed by: Carl Douglas MD 04/16/2018 9:14 PM EDT
[2018-04-16 22:00] VITALS: BP 114/60; PULSE 68; RESP 18; O2SAT 98
[2018-04-16 23:00] VITALS: BP 105/50; PULSE 62; RESP 18; O2SAT 98
[2018-04-16] MEDS ORDERED: KETOROLAC TROMETHAMINE 30 MG/ML (IVP) VIAL IV PUSH ONE (23:00)
[2018-04-17 00:09] VITALS: BP 114/65
--- NOTE | 2018-04-17 18:29 | EKG ---
Date Performed: 04/16/2018 Time Performed: 19:18:41 PTAGE: 42 years EKG: Sinus rhythm NONSPECIFIC ST & T-WAVE ABNORMALITY When compared to previous tracing, the patient has developed Paul rly diffuse nonspecific ST-T wave changes. Clinical correlation is recommended BORDERLINE ECG PREVIOUS TRACING : 09/25/2017 06.32 DOCTOR: Kera Meadows Interpretating Date/Time 04/17/2018 18:27:30
--- NOTE | 2018-04-17 18:30 | EKG ---
Date Performed: 04/16/2018 Time Performed: 23:46:47 PTAGE: 42 years EKG: Sinus rhythm WITH FIRST DEGREE AV BLOCK ST DEVIATION AND MODERATE T-WAVE ABNORMALITY, CONSIDER ANTERIOR ISCHEMIA Since previous tracing, no significant change noted ABNORMAL ECG PREVIOUS TRACING : 04/16/2018 19.18 DOCTOR: Kera Meadows Interpretating Date/Time 04/17/2018 18:28:03
== END 2018-04-17 00:17 | disposition home or self-care (01) ==
LOC: PHED 18:33
DX: R07.9 Chest pain, unspecified (principal); R94.6 Abnormal results of thyroid function studies; R94.31 Abnormal electrocardiogram [ECG] [EKG]; J44.9 Chronic obstructive pulmonary disease, unspecified; G90.50 Complex regional pain syndrome I, unspecified; I11.0 Hypertensive heart disease with heart failure; I50.9 Heart failure, unspecified; E05.00 Thyrotoxicosis with diffuse goiter without thyrotoxic crisis or storm; M32.9 Systemic lupus erythematosus, unspecified
CPT/HCPCS: 71045; 74176; 81001; 83690; 83735; 83880; 84443; 84481; 84484; 84703; 85610; 85730; 93005; 96365; 96375; 99285; J1885; J2270; J3480